=== PATIENT | female | born 1995 | race African-American/Black ===

== ENCOUNTER 2018-04-02 00:05 | Emergency (ER) | payer MEDICAID ==
[~2018-04-02] VITALS: Ht 165.1 cm; Wt 52.4 kg
== END 2018-04-02 00:50 | disposition home or self-care (01) ==
LOC: FSED 00:05
DX: J02.9 Acute pharyngitis, unspecified (principal); F17.210 Nicotine dependence, cigarettes, uncomplicated; Z88.0 Allergy status to penicillin
CPT/HCPCS: 83518; 99282